=== PATIENT | female | born 1955 | race Caucasian/White ===

== ENCOUNTER 2021-04-22 21:44 | Emergency (ER) | payer MEDICARE ==
[~2021-04-22] VITALS: Ht 172.7 cm; Wt 101.4 kg
[~2021-04-22 21:44] MED LIST: BACTRIM DS TAB1 EACH PO; DULOXETINE HCL60 MG PO; GABAPENTIN400 MG PO; IBUPROFEN800 MG PO; NORCO 7.5-3251 EACH PO
[2021-04-22] MEDS ORDERED: IBU800 MG PO (22:25)
[2021-04-22] MEDS ORDERED: DULOXETINE HCL60 MG PO (22:25)
[2021-04-22] MEDS ORDERED: GRALISE600 MG PO (22:25)
== END 2021-04-22 22:30 | disposition home or self-care (01) ==
LOC: ED 21:44
DX: Z76.0 Encounter for issue of repeat prescription (principal); G62.9 Polyneuropathy, unspecified; F17.200 Nicotine dependence, unspecified, uncomplicated; Z88.5 Allergy status to narcotic agent; Z88.1 Allergy status to other antibiotic agents
CPT/HCPCS: 99281